=== PATIENT | female | born 1980 | race Caucasian/White ===

== ENCOUNTER 2021-10-09 13:51 | Outpatient (CLI) | payer OTHER | END 2021-10-09 13:52 | disposition home or self-care (01) | LOC: CSHMAMMO 13:51 | PROVIDERS: ATTEND Family Medicine | DX: Z12.31 Encounter for screening mammogram for malignant neoplasm of breast (principal) | CPT/HCPCS: 77063; 77067 ==

== ENCOUNTER 2023-09-18 10:07 | Outpatient (CLI) | payer OTHER | END 2023-09-18 10:08 | disposition home or self-care (01) | LOC: CSHMAMMO 10:07 | PROVIDERS: ATTEND Student in an Organized Health Care Education/Training Program | DX: Z13.820 Encounter for screening for osteoporosis (principal); M85.88 Other specified disorders of bone density and structure, other site | CPT/HCPCS: 77080 ==

== ENCOUNTER 2024-03-31 08:46 | Outpatient (CLI) | payer OTHER | END 2024-03-31 08:47 | disposition home or self-care (01) | LOC: CSHULT 08:46 | PROVIDERS: ATTEND Student in an Organized Health Care Education/Training Program | DX: E04.1 Nontoxic single thyroid nodule (principal); E04.2 Nontoxic multinodular goiter | CPT/HCPCS: 76536 ==

== ENCOUNTER 2024-11-08 14:28 | Outpatient (CLI) | payer OTHER | END 2024-11-08 14:29 | disposition home or self-care (01) | LOC: CSHMAMMO 14:28 | PROVIDERS: ATTEND Student in an Organized Health Care Education/Training Program | DX: N63.21 Unspecified lump in the left breast, upper outer quadrant (principal) | CPT/HCPCS: 77066; G0279 ==